=== PATIENT | male | born 1945 | race Caucasian/White ===

== ENCOUNTER → 2018-08-28 | Outpatient (CLI) | payer MEDICARE, OTHER | END | disposition home or self-care (01) | LOC: HKI 10:59 | DX: M17.12 Unilateral primary osteoarthritis, left knee (principal); I25.10 Atherosclerotic heart disease of native coronary artery without angina pectoris; E11.8 Type 2 diabetes mellitus with unspecified complications; G62.9 Polyneuropathy, unspecified; F32.9 Major depressive disorder, single episode, unspecified; Z96.642 Presence of left artificial hip joint; Z98.61 Coronary angioplasty status | CPT/HCPCS: 20610; 73564-50 ==

== ENCOUNTER → 2018-12-02 | Outpatient (CLI) | payer MEDICARE, OTHER | END | disposition home or self-care (01) | LOC: HKI 15:27 | DX: M16.11 Unilateral primary osteoarthritis, right hip (principal) | CPT/HCPCS: 73502 ==

== ENCOUNTER → 2019-01-20 | Outpatient (CLI) | payer MEDICARE, OTHER | END | disposition home or self-care (01) | LOC: HKI 14:36 | DX: M16.11 Unilateral primary osteoarthritis, right hip (principal) | CPT/HCPCS: G0463 ==

== ENCOUNTER → 2019-02-03 | Outpatient (CLI) | payer MEDICARE, OTHER | END | disposition home or self-care (01) | LOC: HKI 13:38 | DX: Z47.1 Aftercare following joint replacement surgery (principal); Z96.641 Presence of right artificial hip joint | CPT/HCPCS: G0463 ==

== ENCOUNTER 2019-02-04 05:41 | Inpatient (IN) | payer MEDICARE, OTHER ==
[2019-02-04] MEDS ORDERED: MIDAZOLAM 1 MG/ML 2 ML INJ (07:33)
[2019-02-04] MEDS ORDERED: CEFAZOLIN 1 GM INJ (07:33)
[2019-02-04] MEDS ORDERED: morphine SULFATE/PF (10 MG/10 ML) INJ (07:33)
[2019-02-04] MEDS ORDERED: PROPOFOL 100 ML (07:33)
[2019-02-04] MEDS ORDERED: ROPIVACAINE 0.2% 20 ML VIAL (07:33)
[2019-02-04] MEDS ORDERED: TRANEXAMIC ACID 1GM/100ML(PMX) 200 ML (07:33)
[2019-02-04] MEDS: HIP PAIN COCKTAIL VANCO INJ (07:36)
[2019-02-04] MEDS: CEFAZOLIN 2 GM/50 ML (PMX) 50 ML IVPB ×3 (07:40→22:27)
[2019-02-04] MEDS ORDERED: PHENYLephrine 10 MG INJ ×2 (08:00→09:23)
[2019-02-04] MEDS ORDERED: HETASTARCH 6% NACL 500 ML (08:13)
[2019-02-04] MEDS ORDERED: METOCLOPRAMIDE 10 MG INJ (08:14)
[2019-02-04] MEDS ORDERED: DEXAMETHASONE 4 MG/ML 5 ML INJ (08:14)
[2019-02-04] MEDS ORDERED: ONDANSETRON 4 MG INJ (08:14)
[2019-02-04] MEDS: TRANEXAMIC ACID 1GM/100ML(PMX) 100 ML PRE-OP X1 IVPB (08:16)
[2019-02-04] MEDS ORDERED: ALBUMIN HUMAN 25% 100 ML ×2 (08:40→09:02)
[2019-02-04] MEDS ORDERED: EPHEDrine 25 MG/5 ML SYG (08:40)
[2019-02-04] MEDS: POLYMYXIN B 500000 UNIT INJ (09:08)
[2019-02-04] MEDS: BACITRACIN 50000 UNITS INJ (09:09)
[2019-02-04] MEDS: TRANEXAMIC ACID 1GM/100ML(PMX) 100 ML INTRA-OP X1 IVPB (09:10)
[2019-02-04] MEDS ORDERED: NACL 0.9% 3 ML SYG IV (10:00)
[2019-02-04] MEDS ORDERED: KETOROLAC 15 MG INJ IV (10:00)
[2019-02-04] MEDS ORDERED: NALOXONE (0.4 MG/ML) INJ IV ×2 (10:00→10:30)
[2019-02-04] MEDS ORDERED: oxyCODONE 5 MG TAB PO (10:00)
[2019-02-04] MEDS ORDERED: METOCLOPRAMIDE 10 MG INJ IV (10:30)
[2019-02-04] MEDS ORDERED: NALBUPHINE HCL (10 MG/1 ML) INJ IV (10:30)
[2019-02-04] MEDS ORDERED: EPHEDrine SULFATE 50 MG/5 ML SYG IV (10:30)
[2019-02-04] MEDS ORDERED: HYDROmorphONE 1 MG/5 ML IV SYRINGE IV ×3 (10:30)
[2019-02-04] MEDS ORDERED: DIPHENHYDRAMINE 50 MG INJ IV ×2 (10:30)
[2019-02-04] MEDS ORDERED: LABETALOL HCL 20MG INJ IV (10:30)
[2019-02-04] MEDS ORDERED: HYDROCODONE/APAP (5/325) TAB PO (10:30)
[2019-02-04] MEDS ORDERED: FENTAnyl 50 MCG/ML VIAL IV ×3 (10:30)
[2019-02-04] MEDS ORDERED: morphine 2 MG INJ IV (10:30)
[2019-02-04] MEDS ORDERED: MEPERIDINE 25 MG INJ IV (10:30)
[2019-02-04] MEDS ORDERED: hydrALAzine 20 MG INJ IV (10:30)
[2019-02-04] MEDS ORDERED: ACETAMINOPHEN 500 MG TAB PO (10:30)
[2019-02-04] MEDS ORDERED: ONDANSETRON 4 MG INJ IV ×2 (10:30)
[2019-02-04] MEDS ORDERED: HYDROmorphONE 0.5 MG/0.5 ML SYG IV ×2 (10:30)
[2019-02-04] MEDS ORDERED: OXYCODONE/ACETAMINOPHEN (5/325) TAB PO (10:30)
[2019-02-04] MEDS ORDERED: ALBUMIN HUMAN 5% 250 ML IV (10:30)
[2019-02-04] MEDS: ONDANSETRON 4 MG INJ IV ×3 (10:52→20:20)
[2019-02-04] MEDS: DOCUSATE SODIUM 100 MG CAP PO (10:52)
[2019-02-04] MEDS: LACTATED RINGER'S 1,000 ML IV* (12:28)
[2019-02-04] MEDS: GABAPENTIN 100 MG CAP PO ×2 (13:00→20:21)
[2019-02-04] MEDS: FUROSEMIDE 40 MG INJ IV (15:37)
[2019-02-04 17:25] LABS: ADD MAN DIFF? NO
[2019-02-04 17:28] LABS: ABNORMAL IP MESSAGE 1; BASOPHILS % 0.1 % (0.0-2.0); HEMATOCRIT 39.5 % (42.0-52.0); HEMOGLOBIN 13.4 g/dl (14.0-18.0); LYMPHOCYTES # 0.4 10^3/ul (0.8-2.9); LYMPHOCYTES % 2.5 % (15.0-51.0); MEAN CORPUSCULAR HEMOGLOBIN 33.1 pg (29.0-33.0); MEAN CORPUSCULAR HGB CONC 33.9 g/dl (32.0-37.0); MEAN CORPUSCULAR VOLUME 97.5 fl (82.0-101.0); MEAN PLATELET VOLUME 10.5 fl (7.4-10.4); MONOCYTE # 0.5 10^3/ul (0.3-0.9); MONOCYTES % 3.5 % (0.0-11.0); NEUTROPHIL # 14.5 10^3/ul (1.6-7.5); NEUTROPHILS % 93.3 % (39.0-77.0); PLATELET COUNT 177 10^3/UL (140-415); POSITIVE DIFF @See below; RED BLOOD COUNT 4.05 10^6/ul (4.70-6.10); RED CELL DISTRIBUTION WIDTH 13.5 % (11.5-14.5)
[2019-02-04 17:28] LABS: WHITE BLOOD COUNT 15.6 10^3/ul (4.8-10.8)
[2019-02-04 17:50] LABS: ANION GAP 9 (5-13); BLOOD UREA NITROGEN 24 mg/dl (7-20); CALCIUM 8.7 mg/dl (8.4-10.2); CARBON DIOXIDE 22 mmol/L (21-31); CHLORIDE 109 mmol/L (97-110); CREATININE 1.12 mg/dl (0.61-1.24); GLUCOSE 214 mg/dl (70-220); SODIUM 140 mmol/L (135-144)
[2019-02-04] MEDS: metFORMIN 500 MG TAB PO (17:53)
[2019-02-04] MEDS: INSULIN ASPART [NOVOLOG] 3 ML PEN SC (18:13)
[2019-02-04] MEDS: POTASSIUM CHLORIDE (SR) 20 MEQ TAB PO (20:21)
[2019-02-04] MEDS: TAMSULOSIN (SR) 0.4 MG CAP PO (20:21)
[2019-02-04] MEDS: ATORVASTATIN 20 MG TAB PO (20:21)
[2019-02-04] MEDS: PREGABALIN 75 MG CAP PO (20:22)
[2019-02-04] MEDS: METHADONE 10 MG TAB PO (20:22)
[2019-02-04] MEDS: ATENOLOL 100 MG TAB PO (21:00)
[2019-02-05] MEDS: DIAZEPAM 5 MG TAB PO (00:50)
[2019-02-05] MEDS: CEFAZOLIN 2 GM/50 ML (PMX) 50 ML IVPB ×2 (02:00→10:44)
[2019-02-05] MEDS: ONDANSETRON 4 MG INJ IV (02:05)
[2019-02-05] MEDS: morphine 2 MG INJ IV ×2 (03:47→07:04)
[2019-02-05 05:15] LABS: ADD MAN DIFF? NO
[2019-02-05 05:22] LABS: ABNORMAL IP MESSAGE 1; BASOPHILS % 0.1 % (0.0-2.0); HEMATOCRIT 34.6 % (42.0-52.0); HEMOGLOBIN 11.9 g/dl (14.0-18.0); LYMPHOCYTES # 0.5 10^3/ul (0.8-2.9); LYMPHOCYTES % 3.7 % (15.0-51.0); MEAN CORPUSCULAR HEMOGLOBIN 33.2 pg (29.0-33.0); MEAN CORPUSCULAR HGB CONC 34.4 g/dl (32.0-37.0); MEAN CORPUSCULAR VOLUME 96.6 fl (82.0-101.0); MEAN PLATELET VOLUME 10.4 fl (7.4-10.4); MONOCYTES % 7.8 % (0.0-11.0); NEUTROPHIL # 11.7 10^3/ul (1.6-7.5); NEUTROPHILS % 87.4 % (39.0-77.0); PLATELET COUNT 164 10^3/UL (140-415); POSITIVE DIFF @See below; RED BLOOD COUNT 3.58 10^6/ul (4.70-6.10); RED CELL DISTRIBUTION WIDTH 13.2 % (11.5-14.5)
[2019-02-05 05:22] LABS: WHITE BLOOD COUNT 13.4 10^3/ul (4.8-10.8)
[2019-02-05 05:47] LABS: ANION GAP 6 (5-13); BLOOD UREA NITROGEN 24 mg/dl (7-20); CALCIUM 8.6 mg/dl (8.4-10.2); CARBON DIOXIDE 27 mmol/L (21-31); CHLORIDE 107 mmol/L (97-110); CREATININE 1.05 mg/dl (0.61-1.24); GLUCOSE 156 mg/dl (70-220); POTASSIUM 3.7 mmol/L (3.5-5.1); SODIUM 140 mmol/L (135-144)
[2019-02-05 06:00] LABS: INR 1.17; PT RATIO 1.2
[2019-02-05] MEDS: PANTOPRAZOLE (EC) 40 MG TAB PO (07:04)
[2019-02-05] MEDS: INSULIN ASPART [NOVOLOG] 3 ML PEN SC ×2 (09:09→13:31)
[2019-02-05] MEDS: CYANOCOBALAMIN 500 MCG TAB PO (09:10)
[2019-02-05] MEDS: METHADONE 10 MG TAB PO (09:11)
[2019-02-05] MEDS: ASPIRIN (EC) 81 MG TAB PO (09:12)
[2019-02-05] MEDS: DULOXETINE 30 MG CAP DR PO (09:12)
[2019-02-05] MEDS: metFORMIN 500 MG TAB PO (09:12)
[2019-02-05] MEDS: AMLODIPINE 10 MG TAB PO (09:13)
[2019-02-05] MEDS: GABAPENTIN 100 MG CAP PO ×2 (09:13→13:34)
[2019-02-05] MEDS: CELECOXIB 100 MG CAP PO (09:13)
[2019-02-05] MEDS: ATENOLOL 100 MG TAB PO (09:14)
[2019-02-05] MEDS: PREGABALIN 75 MG CAP PO ×2 (09:15→13:26)
[2019-02-05] MEDS: POTASSIUM CHLORIDE (SR) 20 MEQ TAB PO ×2 (09:16→13:54)
[2019-02-05] MEDS: CHOLECALCIFEROL 2,000 UNIT CAP PO (09:16)
[2019-02-05] MEDS: FUROSEMIDE 20 MG TAB PO (09:55)
== END 2019-02-05 15:45 | disposition home or self-care (01) | DRG 470 ==
LOC: REC 05:41 → MS1 12:47
PROVIDERS: Orthopaedic Surgery Adult Reconstructive Orthopaedic Surgery
PROC: 0SR904A Replacement of Right Hip Joint with Ceramic on Polyethylene Synthetic Substitute, Uncemented, Open Approach (ICD-10-PCS; principal; 2019-02-04 07:30)
DX: M16.11 Unilateral primary osteoarthritis, right hip (principal); F33.8 Other recurrent depressive disorders; Z95.5 Presence of coronary angioplasty implant and graft; E11.9 Type 2 diabetes mellitus without complications; E78.5 Hyperlipidemia, unspecified; I10 Essential (primary) hypertension; N40.0 Benign prostatic hyperplasia without lower urinary tract symptoms; E11.42 Type 2 diabetes mellitus with diabetic polyneuropathy; E29.1 Testicular hypofunction; G89.4 Chronic pain syndrome
CPT/HCPCS: 72170; 73530; 80048; 82962; 85025; 85610; 88304; 88311; 97116; 97161; 97165; 97530